=== PATIENT | male | born 1955 | race American Indian/Alaskan Native ===

== ENCOUNTER 2017-05-31 09:09 | Day surgery (SDC) | payer MEDICARE ==
[~2017-05-31 09:09] MED LIST: MYDRIACYL OD SCH; TETRACAINE 0.5% OD PRN
[2017-05-31] MEDS: VIGAMOX OD SCH ×3 (11:30→11:40)
[2017-05-31] MEDS: MYDRIACYL OD NR ×3 (11:30→11:40)
[2017-05-31] MEDS: AK-Dilate OD SCH ×3 (11:30→11:40)
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
--- NOTE | 2017-05-31 11:47 | Anesthesia Day of Surgery ---
Anesthesia Day of Surgery - Day of Surgery Patient Examined: Yes Patient H&P Reviewed: Yes Patient is NPO: Yes Beta Blockers: Yes
[2017-05-31] MEDS ORDERED: NACL 0.9% 1000 ML 1,000 ML ONE (12:03)
[2017-05-31] MEDS ORDERED: D50W (25GM) Syringe IV ONE ×2 (12:03→12:26)
[2017-05-31] MEDS ORDERED: NACL 0.9% 1000 ML 1,000 ML IV SCH (13:00)
[2017-05-31] MEDS ORDERED: VERSED ONE (13:20)
[2017-05-31] MEDS ORDERED: SUBLIMAZE ONE (13:32)
[2017-05-31] MEDS ORDERED: VISION BLUE IO ONE (13:39)
[2017-05-31] MEDS ORDERED: D50W (25GM) Syringe IV NR (14:00)
[2017-05-31] MEDS ORDERED: DIAMOX PO ONE (14:06)
--- NOTE | 2017-05-31 14:07 | Operative Report ---
Operative Report Operative Report: PATIENT'S NAME: DATE OF : DATE OF SURGERY: 05/31/2017 PREOPERATIVE DIAGNOSIS: Cataract right eye POSTOPERATIVE DIAGNOSIS: Same OPERATIVE PROCEDURE: Phacoemulsification with intraocular lens implantation, right eye SURGEON: Guerline Hidalgo M.D. CRYPTANALYST SURGEON: Leesa Lens: [id number] 6.5 D ANESTHESIA: Monitored anesthesia care in combination with topical and intracameral anesthesia because of the established specific risk of reflux, arrhythmias, or anxiety attacks associated with ocular manipulation, as well as the difficulty of the manager lvn to manage such potentially catastrophic events while simultaneously attempting to complete the surgical procedure and was deemed necessary for the patient's safety to have an Patternmaker Pressure Cast present during the procedure whenever possible. An Patternmaker Pressure Cast was utilized to regulate the intravenous sedation of the patient so the patient was cooperative yet not asleep in order for the patient to successfully maintain fixation of the eye on the operating light of the microscope. COMPLICATIONS: No surgical complications No blood loss. ALLERGIES: No known drug allergies PROGNOSIS: Excellent INDICATIONS FOR SURGERY: The patient is undergoing surgery in the hopes of eliminating or improving these visual difficulties. PROCEDURE: After arriving at the surgery center, the patient was given topical anesthetic and dilating drops, as noted in the record. The patient was then taken into the operating room and given more anesthetic drops. The eyelids , lashes, and lid margins were scrubbed with Betadine solution, and the patient was draped. The Nurse Patternmaker Pressure Cast administered IV sedation and monitored the patient during the procedure. The eye was then fixated with a 0.12, and a stab incision was made in the peripheral clear cornea into the anterior chamber. This was made on my left side. Viscoelastic was next used to fill the anterior chamber. The eye was once again fixated with the 0.12 forceps and a keratome was used make an incision in clear cornea peripherally on my right hand side temporally. The capsule forceps were used to open the central anterior capsule and then make a continuous round capsulotomy. Hydrodissection was carried out utilizing a cannula and balanced salt solution to delineate the cortical material from the capsule and the nucleus from the cortical material. The phaco tip was introduced into the eye and used to remove the anterior cortical material in the area of the capsulotomy. Then the phaco tip was buried into the nucleus, and a chopping instrument was introduced into the eye and used to provide countertraction in the nucleus between this instrument and the phaco tip fracturing the nucleus. This procedure was repeated multiple times, providing multiple small segments of the lens, and then the phaco tip was used to remove each of these segments. An I/A tip was then used to remove the remaining cortex. The anterior chamber was refilled with viscoelastic. An one-piece, acrylic intraocular lens was then placed into an inserting cartridge. The tip of the inserting cartridge was introduced into the keratome incision and into the anterior chamber. The implant was gently advanced through the cartridge and into the eye, where it unfolded, and both haptics were placed in the capsular bag, where it centered nicely and appeared to be well fixated. After placement of the intraocular lens, the I~and~A handpiece was placed back into the eye and used to remove the viscoelastic, including viscoelastic that was behind the optic of the intraocular lens. The anterior chamber was then filled with balanced salt solution, and hydration of the wound was used to cause swelling of the wound and more appropriate watertight closure. When the wound was found to be firm, the patient was asked to comment on how bright the light was. If there was no light perception at all or if the light was substantially dimmer than during the rest of the surgery, the amount of fluid in the eye was decompressed to lower the intraocular pressure until the patient could see the bright light again. This was done to avoid any damage or decreased blood flow to the optic nerve. MEDICATIONS APPLIED AT END OF SURGERY: One drop of Pred Forte and Vigamox The patient was given a shield to wear at night and was instructed not to rub or push on the eye. DISCHARGE SUMMARY: The patient was released in stable condition. The patient and those with the patient were given a written sheet of postoperative instructions and counseling on any abnormal laboratory studies. The patient is to see us tomorrow for follow-up in the office and is to call immediately for any difficulties. Guerline Hidalgo M.D. Date
--- NOTE | 2017-05-31 14:08 | Short Stay Summary ---
Short Stay Documentation Date of service: 05/31/17 - History H&P: obtained from office - Allergies and Medications Current Medications: Allergies No Known Allergies Allergy (Verified 05/30/17 14:04) Home Medications Medication Instructions Recorded Confirmed Last Taken Type Allopurinol [Allopurinol] 300 mg PO DAILY 05/30/17 05/31/17 05/30/17 History Atorvastatin Calcium [Atorvastatin 20 mg PO QHS 05/30/17 05/31/17 05/30/17 History Calcium] Carvedilol [Carvedilol] 25 mg PO BID 05/30/17 05/31/17 05/30/17 History Folic Acid [Folvite] 1 mg PO DAILY 05/30/17 05/31/17 05/30/17 History Gabapentin [Neurontin] 300 mg PO TID 05/30/17 05/31/17 05/23/17 History ISOSORBIDE MONOnitrate [Imdur ER] 30 mg PO DAILY 05/30/17 05/31/17 05/30/17 History Lisinopril [Zestril TAB] 40 mg PO DAILY 05/30/17 05/31/17 05/31/17 History Rivaroxaban [Xarelto] 20 mg PO DAILY 05/30/17 05/31/17 05/30/17 History amLODIPine [Norvasc] 10 mg PO DAILY 05/30/17 05/31/17 05/30/17 History Active Medications Acetazolamide (Diamox) 500 mg PO BID ONE Stop: 05/31/17 14:07 Sodium Chloride (Nacl 0.9% 1000 Ml) 1,000 mls @ 75 mls/hr IV DIRECT [facility] Stop: 05/31/17 23:59 Moxifloxacin HCl (Vigamox) 1 drops OD Q5MIN [facility] Stop: 05/31/17 23:59 Last Admin: 05/31/17 11:40 Dose: 1 drops Phenylephrine HCl (Ak-Dilate) 1 drops OD Q5MIN [facility] Stop: 05/31/17 23:59 Last Admin: 05/31/17 11:40 Dose: 1 drops Prednisolone Acetate (Pred Forte 1%) 1 drops OD QID [facility] Tetracaine HCl (Tetracaine 0.5%) 1 drops OD Q5M PRN PRN Reason: Analgesia Stop: 05/31/17 23:59 Last Admin: 05/31/17 11:30 Dose: 1 drops - Brief post op/procedure progress note Date of procedure: 05/31/17 Pre-op diagnosis: right cataract Post-op diagnosis: same Procedure: Phacoemulsification with intraocular lens insertion right eye Anesthesia: MAC, local Surgeon: GRAYSON RAIN Estimated blood loss: none Pathology: none Condition: stable - Disposition Condition at discharge: Good Disposition: DC-01 TO HOME OR SELFCARE - Discharge Diagnoses (1) Cataract Status: Acute Qualifiers: Cataract type: age-related Age-related cataract type: nuclear Laterality : right Qualified Code(s): H25.11 - Age-related nuclear cataract, right eye Short Stay Discharge Plan Follow up with: [facility] [Other] - 7 Days
[2017-05-31] MEDS ORDERED: PRED FORTE 1% ONE (14:19)
--- NOTE | 2017-05-31 14:43 | Post Anesthesia Evaluation ---
- Post Anesthesia Evaluation Patient Participated: Yes Airway Patent: Yes Stable Respiratory Function: Yes Nausea/Vomiting: No Temp > 96.8F: Yes Pain Manageable: Yes Adequeate Hydration: Yes Anesthesia Complications: No
[2017-05-31 15:04] VITALS: BP 148/77
[2017-05-31] MEDS ORDERED: PRED FORTE 1% OD SCH (18:00)
== END 2017-05-31 15:15 | disposition home or self-care (01) ==
LOC: OR 09:09
DX: E11.36 Type 2 diabetes mellitus with diabetic cataract (principal); I10 Essential (primary) hypertension; I25.2 Old myocardial infarction; I48.91 Unspecified atrial fibrillation; M19.90 Unspecified osteoarthritis, unspecified site; F17.210 Nicotine dependence, cigarettes, uncomplicated; Z79.899 Other long term (current) drug therapy; Z95.5 Presence of coronary angioplasty implant and graft; Z99.3 Dependence on wheelchair; Z86.711 Personal history of pulmonary embolism; Z79.01 Long term (current) use of anticoagulants
CPT/HCPCS: 66984; 82962; J2250; J3010; J7030; V2632

== ENCOUNTER 2017-08-16 07:47 | Day surgery (SDC) | payer MEDICARE ==
[~2017-08-16 07:47] MED LIST changes: -MYDRIACYL OD SCH; -TETRACAINE 0.5% OD PRN; +TETRACAINE 0.5% OS PRN
[2017-08-16] MEDS: MYDRIACYL OS SCH ×3 (10:20→10:30)
[2017-08-16] MEDS: VIGAMOX OS SCH ×3 (10:20→10:30)
[2017-08-16] MEDS: AK-Dilate OS SCH ×3 (10:20→10:30)
[2017-08-16] MEDS ORDERED: SUBLIMAZE IV PRN (10:56)
--- NOTE | 2017-08-16 10:56 | Anesthesia Day of Surgery ---
Anesthesia Day of Surgery - Day of Surgery Patient Examined: Yes Patient H&P Reviewed: Yes Patient is NPO: Yes
--- NOTE | 2017-08-16 10:56 | Anesthesia Consultation ---
Anesthesia Consult and Med Hx - Airway Anesthetic Teeth Evaluation: Poor ROM Head & Neck: Adequate Mental/Hyoid Distance: Adequate Mallampati Class: Class II Intubation Access Assessment: Good - Pulmonary Exam CTA: Yes - Cardiac Exam Cardiac Exam: RRR - Pre-Operative Health Status ASA Pre-Surgery Classification: ASA3 Proposed Anesthetic Plan: MAC - Pulmonary Hx Smoking: Yes (3PPD SINE 1972) - Cardiovascular System Hx Hypertension: Yes (X 10 YEARS) Hx Coronary Artery Disease: Yes Hx Heart Attack/AMI: Yes (x2. stents) - Central Nervous System Hx Psychiatric Problems: No - Endocrine Hx Non-Insulin Dependent Diabetes: Yes (not on meds) - Other Systems Hx Alcohol Use: No Hx Substance Use: No Hx Cancer: No
[2017-08-16] MEDS ORDERED: VERSED ONE (10:57)
[2017-08-16] MEDS ORDERED: SUBLIMAZE ONE (10:57)
[2017-08-16] MEDS ORDERED: LACTATED RINGERS 1,000 ML IV SCH (11:00)
[2017-08-16] MEDS ORDERED: DIAMOX PO ONE (11:49)
--- NOTE | 2017-08-16 11:50 | Operative Report ---
Operative Report Operative Report: PATIENT'S NAME: DATE OF : DATE OF SURGERY: 08/16/2017 PREOPERATIVE DIAGNOSIS: Cataract left eye POSTOPERATIVE DIAGNOSIS: Same OPERATIVE PROCEDURE: Phacoemulsification with intraocular lens implantation, left eye SURGEON: Guerline Hidalgo M.D. BLOWER BLAST FURNACE SURGEON: Leesa Lens: [id number] 16.5 D ANESTHESIA: Monitored anesthesia care in combination with topical and intracameral anesthesia because of the established specific risk of reflux, arrhythmias, or anxiety attacks associated with ocular manipulation, as well as the difficulty of the lab pack chemist to manage such potentially catastrophic events while simultaneously attempting to complete the surgical procedure and was deemed necessary for the patient's safety to have an Asset Protection Agent present during the procedure whenever possible. An Asset Protection Agent was utilized to regulate the intravenous sedation of the patient so the patient was cooperative yet not asleep in order for the patient to successfully maintain fixation of the eye on the operating light of the microscope. COMPLICATIONS: No surgical complications No blood loss. ALLERGIES: N known drug allergies PROGNOSIS: Excellent INDICATIONS FOR SURGERY: The patient is undergoing surgery in the hopes of eliminating or improving these visual difficulties. PROCEDURE: After arriving at the surgery center, the patient was given topical anesthetic and dilating drops, as noted in the record. The patient was then taken into the operating room and given more anesthetic drops. The eyelids , lashes, and lid margins were scrubbed with Betadine solution, and the patient was draped. The Nurse Asset Protection Agent administered IV sedation and monitored the patient during the procedure. The eye was then fixated with a 0.12, and a stab incision was made in the peripheral clear cornea into the anterior chamber. This was made on my left side. Viscoelastic was next used to fill the anterior chamber. The eye was once again fixated with the 0.12 forceps and a keratome was used make an incision in clear cornea peripherally on my right hand side temporally. The capsule forceps were used to open the central anterior capsule and then make a continuous round capsulotomy. Hydrodissection was carried out utilizing a cannula and balanced salt solution to delineate the cortical material from the capsule and the nucleus from the cortical material. The phaco tip was introduced into the eye and used to remove the anterior cortical material in the area of the capsulotomy. Then the phaco tip was buried into the nucleus, and a chopping instrument was introduced into the eye and used to provide countertraction in the nucleus between this instrument and the phaco tip fracturing the nucleus. This procedure was repeated multiple times, providing multiple small segments of the lens, and then the phaco tip was used to remove each of these segments. An I/A tip was then used to remove the remaining cortex. The anterior chamber was refilled with viscoelastic. An one-piece, acrylic intraocular lens was then placed into an inserting cartridge. The tip of the inserting cartridge was introduced into the keratome incision and into the anterior chamber. The implant was gently advanced through the cartridge and into the eye, where it unfolded, and both haptics were placed in the capsular bag, where it centered nicely and appeared to be well fixated. After placement of the intraocular lens, the I~and~A handpiece was placed back into the eye and used to remove the viscoelastic, including viscoelastic that was behind the optic of the intraocular lens. The anterior chamber was then filled with balanced salt solution, and hydration of the wound was used to cause swelling of the wound and more appropriate watertight closure. When the wound was found to be firm, the patient was asked to comment on how bright the light was. If there was no light perception at all or if the light was substantially dimmer than during the rest of the surgery, the amount of fluid in the eye was decompressed to lower the intraocular pressure until the patient could see the bright light again. This was done to avoid any damage or decreased blood flow to the optic nerve. MEDICATIONS APPLIED AT END OF SURGERY: One drop of Pred Forte and Vigamox The patient was given a shield to wear at night and was instructed not to rub or push on the eye. DISCHARGE SUMMARY: The patient was released in stable condition. The patient and those with the patient were given a written sheet of postoperative instructions and counseling on any abnormal laboratory studies. The patient is to see us tomorrow for follow-up in the office and is to call immediately for any difficulties. Guerline Hidalgo M.D. Date
--- NOTE | 2017-08-16 11:52 | Short Stay Summary ---
Short Stay Documentation Date of service: 08/16/17 - History H&P: obtained from office - Allergies and Medications Current Medications: Allergies No Known Allergies Allergy (Verified 08/15/17 10:24) Home Medications Medication Instructions Recorded Confirmed Last Taken Type Allopurinol 300 mg PO DAILY 05/30/17 08/15/17 05/30/17 History Atorvastatin Calcium 20 mg PO QHS 05/30/17 08/15/17 05/30/17 History Carvedilol 25 mg PO BID 05/30/17 08/15/17 05/30/17 History Folic Acid [Folvite] 1 mg PO DAILY 05/30/17 08/15/17 05/30/17 History Gabapentin [Neurontin] 300 mg PO TID 05/30/17 08/15/17 05/23/17 History ISOSORBIDE MONOnitrate [Imdur ER] 30 mg PO DAILY 05/30/17 08/15/17 05/30/17 History Lisinopril [Zestril TAB] 40 mg PO DAILY 05/30/17 08/15/17 05/31/17 History Rivaroxaban [Xarelto] 20 mg PO DAILY 05/30/17 08/15/17 05/30/17 History amLODIPine [Norvasc] 10 mg PO DAILY 05/30/17 08/15/17 05/30/17 History Active Medications Acetazolamide (Diamox) 500 mg PO ONCE ONE Stop: 08/16/17 11:50 Fentanyl (Sublimaze) 50 mcg IV Q5MIN PRN PRN Reason: Pain , Severe (7-10) Stop: 08/16/17 14:00 Lactated Ringer's (Lactated Ringers) 1,000 mls @ 42 mls/hr IV DIRECT [facility] Moxifloxacin HCl (Vigamox) 1 drops OS Q5MIN [facility] Stop: 08/16/17 18:00 Phenylephrine HCl (Ak-Dilate) 1 drops OS Q5MIN [facility] Stop: 08/16/17 18:00 Prednisolone Acetate (Pred Forte 1%) 1 drops OS QID [facility] Tetracaine HCl (Tetracaine 0.5%) 1 drops OS Q5M PRN PRN Reason: Analgesia Stop: 08/16/17 18:00 Tropicamide (Mydriacyl) 1 drops OS Q5MIN [facility] Stop: 08/16/17 18:00 - Brief post op/procedure progress note Date of procedure: 08/16/17 Pre-op diagnosis: combined type cataract left eye Post-op diagnosis: same Anesthesia: MAC, local Surgeon: GRAYSON RAIN Estimated blood loss: none Pathology: none Condition: stable - Disposition Condition at discharge: Good Disposition: DC-01 TO HOME OR SELFCARE - Discharge Diagnoses (1) Combined form of senile cataract of left eye Status: Resolved Short Stay Discharge Plan Follow up with: [facility] [Other] - 7 Days
[2017-08-16] MEDS ORDERED: PRED FORTE 1% OS SCH (14:00)
[2017-08-16 17:31] VITALS: BP 140/66
== END 2017-08-16 12:40 | disposition home or self-care (01) ==
LOC: OR 07:47
DX: E11.36 Type 2 diabetes mellitus with diabetic cataract (principal); H25.811 Combined forms of age-related cataract, right eye; I10 Essential (primary) hypertension; I48.91 Unspecified atrial fibrillation; I25.10 Atherosclerotic heart disease of native coronary artery without angina pectoris; I25.2 Old myocardial infarction; F17.210 Nicotine dependence, cigarettes, uncomplicated; Z99.3 Dependence on wheelchair; Z79.899 Other long term (current) drug therapy; M19.90 Unspecified osteoarthritis, unspecified site; Z95.5 Presence of coronary angioplasty implant and graft
CPT/HCPCS: 66984; 82962; J2250; J3010; V2632